=== PATIENT | female | born 2005 | race Hispanic/Latino ===

== ENCOUNTER 2024-09-09 15:21 | Emergency (ER) | payer OTHER ==
[2024-09-09] MEDS ORDERED: ONDANSETRON 4 MG (ODT) TAB ONE (16:03)
[2024-09-09] MEDS ORDERED: ACETAMINOPHEN 500 MG TAB ONE (16:03)
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
[2024-09-09 18:41] VITALS: BP 132/106; TEMP 97.3; O2SAT 100
== END 2024-09-09 18:34 | disposition home or self-care (01) ==
LOC: ER 15:21
DX: R51.9 Headache, unspecified (principal); M54.2 Cervicalgia; R07.9 Chest pain, unspecified; V49.40XA Driver injured in collision with unspecified motor vehicles in traffic accident, initial encounter
CPT/HCPCS: 70450; 72125; 71045; 99283; Q0162

== ENCOUNTER 2024-10-01 12:37 | Emergency (ER) | payer OTHER ==
--- OUTSIDE RECORDS SUMMARY | 2024-10-01 12:41 | XMS REPORT | Continuity of Care Document ---
Author Name Unknown Address [address] [facility] [address] [place] [address] [facility] Address [address] [facility] [place] [address] Care Team Providers Care Hand Icer Name Role Phone Frederic Rossi Attending Clinician Ernestina Vides Attending Clinician UnavailIsabel Jerome Attending Clinician Unavailable Serg Pisano APN Attending Clinician Unavail Ruth Woodward Attending Clinician Unav ailFrederic Faith Admitting Clinician Unavailable Ernestina Forrester Admitting Clinician UnavailSerg Martin APN Admitting Clinician Unavail Ruth Woodward Admitting Clinician Unav ailkarina Payers Payer Name Policy Type Policy Number Effective Date Expirati on Date Source Problems Condition Name Condition Details Condition Category Status Onset Date Resolution Date Last Treatment Date Treating Clinician Comments Source Anxiety Anxiety Problem Active 09-13 00:00: 00 [facility] Depressive disorder Depressive Disorder Problem Active - 00:00: 00 [facility] Menorrhagi a Menorrhagi a Problem Active - 00:00: 00 [facility] Depressed mood Depressed Mood Problem Active 09-13 00:00: 00 [facility] Allergies, Adverse Reactions, Alerts Allergy Name Allergy Type Status Severity Reaction(s) Onset Date Inactive Date Treating Clinician Comments Source No Known Allergie s DA Active U 2020-07 00:00: 00 [facility] No Known Allergie s DA Active U 01-02 00:00: 00 [facility] No Known Allergie s DA Active U 01-12 00:00: 00 [facility] Social History Smoking Status Start Date Stop Date Source Never Smoker [facility] Vital Signs Vital Name Observation Time Observation Value Comments S ource BP Diastolic 2024-09-13 00:00:00 77 mm[Hg] [facility] BP Systolic 2024-09-13 00:00:00 117 mm[Hg] [facility] Body Weight 2024-09-13 00:00:00 164 [lb_av] [facility] BMI (Body Mass Index) 2024-09-13 00[facility]00[facility]00 [facility] 2024-09-13 00:00:00 63 [in_i] [facility] Procedures Procedure Date / Time Performed Performing Clinicia n Source Endoscopic Balloon Dilation of Ostium of Paranasal Sinus [facility] Appendectomy [facility] Encounters Start Date/Time End Date/Time Encounter Type Admission Type Attending Clinicians Care Facility Care Department Encounter ID Source 2024-09-13 00:00:00 2024-09-13 00:00:00 Divya Birmingham, NURSING DEPARTMENT CHAIRPERSON: [address], [address], [place] [address] , Ph. [facility] - [email or web address]* [id number] [facility] 2023-11-08 10:34:00 2023-11-08 10:34:00 [facility]patient [facility] [id number] 2023-02-18 15:37:00 2023-02-18 15:37:00 Outpatient Ernestina [facility] [id number] 2022-12-15 13:57:00 2022-12-15 13:57:00 [facility] [id number] [facility] 2022-05-11 16:41:00 2022-05-11 17:14:00 Emergency EM Isabel [facility] [id number] [facility] 2021-05-22 08:29:00 2021-05-22 08:29:00 [facility] [id number] [facility] 2020-10-18 11:14:00 2020-10-18 11:14:00 Outpatient Ruth Swanson [facility] [id number] [facility] Results Test Description Test Time Test Comments Results Result Co mments Source [facility] W/AUTO [id number] 12:56:00* Test Item Value Reference Range Interpretation Comme nts WHITE BLOOD CELL (test code = WBC) 8.0 X10(3) 4.5-11.0 N RED BLOOD CELL (test code = RBC) 4.45 X10(6) 4.2-5.4 N HEMOGLOBIN (test code = HGB) 8.8 g/dL 12.5-16.0 L HEMATOCRIT (test code = HCT) 29.5 % 37.0-47.0 L MEAN CELL VOLUME (test code = MCV) 66.3 fL 78-100 L MEAN CELL HGB (test code = MCH) 19.8 pg 26.0-34.0 L MEAN CELL HGB CONCETRATION (test code = MCHC) 29.8 g/dl 30.0-37.0 L RED CELL DISTRIBUTION WIDTH (test code = RDW) 17.5 % 11.5-14.5 H PLATELET COUNT (test code = PLT) 411 X10(3) 150-400 H MEAN PLATELET VOLUME (test code = MPV) 9.8 fl 8.7-11.4 N NEUTROPHIL % (test code = NT%) 61.0 % 36.0-66.0 N IMMATURE GRANULOCYTE % (test code = IG%) 0.1 % 0.0-2.0 N LYMPHOCYTE % (test code = LY%) 28.7 % 16-50 N MONOCYTE % (test code = MO%) 6.7 % 0.0-13.0 N EOSINOPHIL % (test code = EO%) 3.1 % 0.0-4.5 N BASOPHIL % (test code = BA%) 0.4 % 0.0-1.5 N NEUTROPHIL # (test code = NT#) 4.9 X10(3) 1.7-7.7 N IMMATURE GRANULOCYTE # (test code = IG#) 0.01 X10(3)uL 0.00-0.03 N LYMPHOCYTE # (test code = LY#) 2.3 X10(3) 1.0-4.8 N MONOCYTE # (test code = MO#) 0.5 X10(3) 0.0-0.89 N EOSINOPHIL # (test code = EO#) 0.3 X10(3) 0.0-0.6 N BASOPHIL # (test code = BA#) 0.0 X10(3) 0.0-0.2 N RBC MORPHOLOGY REQUIRED (test code = RBCM) MORPHOLOGY NEEDED NORMAL RBC [id number] 12:56:00* Test Item Value Reference Range Interpretation Comme nts MICROCYTOSIS (test code = MICR) 1+ NOT PRESENT PLATELET ESTIMATE (test code = PLTEST) SLIGHTLY INCREASED ADEQUATE PLATELET MORPHOLOGY (test code = PLTMORPH) VARIABLE PLT SIZE NORMAL A PROTHROMBIN [id number] 12:54:00* Test Item Value Reference Range Interpretation Comments PROTHROMBIN TIME PATIENT (test code = PTP) 12.4 SECONDS 9.4-13.0 N THERAPEUTIC LEVE L: 1.5 TO 1.9 TIMES NORMAL RANGE INTERNATIONAL NORMAL RATIO (test code = INR) 1.1 Recommended Ther apeutic PT Ratios For Oral AnticoagulantTherapy. CONDITION INT'L NORMALIZED PT RATIO Prophylaxis of venous thrombosis 2.0 - 3.0in high risk medical or surgicalpatients, treatment of venousthrombosis, prevention of embolism. Prevention of recurrent embolism, 2.5 - 3.5or treatment of patients with mechanicalprosthetic heart valves. VITAMIN D TOTAL [id number] 19:30:00* Test Item Value Reference Range Interpretation Comme nts VITAMIN D TOTAL 25OH (test c ode = VITD) 9.8 ng/ml 30-100 L DRUGS OF ABUSE [id number] 19:21:00* Test Item Value Reference Range Interpretation Comme nts UR COCAINE (test code = COCAU) NEGATIVE ng/ml NEGATIVE UR CANNABINOIDS (test code = CANU) NEGATIVE ng/ml NEGATIVE UR AMPHETAMINE (test code = AMPHU) NEGATIVE ng/dl NEGATIVE UR BARBITURATE (test code = BARBU) NEGATIVE ng/ml NEGATIVE UR BENZODIAZEPINE (test code = BENZU) NEGATIVE ng/ml NEGATIVE UR OPIATES QUAL (test code = OPIAQLU) NEGATIVE ng/ml NEGATIVE UR PHENCYCLIDINE (PCP) (test code = PHENCU) NEGATIVE ng/ml NEGATIVE THE URINE SPECIM EN WAS TESTED AT THE LISTED CUTOFFS DRUG CLASS INITIAL TEST LEVEL AMPHETAMINES 1000 NG/MLBARBITURATES 200 NG/MLBENZODIAZEPIN ES 200 NG/MLCOCAINE METABOLITE 300 NG/MLMARIJUANA METABOLITE 50 NG/MLOPIATES 300 NG/MLPHENCYCLIDINE 25 NG/ML URINALYSIS W REFLEX [id number] 19:07:00* Test Item Value Reference Range Interpretation Comme nts UA COLOR (test code = COLU) YELLOW YELLOW UA APPEARANCE (test code = APPU) CLEAR CLEAR UA GLUCOSE DIPSTICK (test co de = DGLUU) NORMAL mg/dl NORMAL UA BILIRUBIN DIPSTICK (test code = BILU) NEGATIVE mg/dl NEGATIVE UA KETONE DIPSTICK (test cod e = KETU) NEGATIVE mg/dl NEGATIVE UA SPECIFIC GRAVITY (test co de = SGU) 1.025 1.001-1.035 N UA BLOOD DIPSTICK (test code = TAURUS) NEGATIVE /UL NEGATIVE UA PH DIPSTICK (test code = YURY) 5.0 4.6-8.0 UA PROTEIN DIPSTICK (test co de = PROU) 30 mg/dl NEGATIVE A UA UROBILINIOGEN DIPSTICK (test code = URO) NORMAL mg/dl NORMAL UA NITRITE DIPSTICK (test co de = LEIA) NEGATIVE NEGATIVE UA LEUKOCYTE ESTERASE DIPSTI CK (test code = LEUU) 25 /UL NEGATIVE A UA COMMENT (test code = COMU) RANDOM UA MICROSCOPIC NEEDED? (test code = UAMICRO) Y= DO UA MICRO UR HCG [id number] 19:07:00* Test Item Value Reference Range Interpretation Comme nts UR HCG QUAL (test code = HCGQLU) NEGATIVE NEGATIVE UA [id number] 19:07:00* Test Item Value Reference Range Interpretation Comme nts UA WBC (test code = WBCU) 0-2 #/hpf 0-5 UA RBC (test code = RBCU) 0-2 #/hpf 0-5 UA EPITHELIAL CELLS (test co de = EPIU) 1+ /hpf NEG,FEW A UA BACTERIA (test code = BACU) 1+ /hpf NEGATIVE A CBC W/AUTO [id number] 16:50:00* Test Item Value Reference Range Interpretation Comme nts WHITE BLOOD CELL (test code = WBC) 7.7 X10(3) 4.5-11.0 N RED BLOOD CELL (test code = RBC) 4.89 X10(6) 4.2-5.4 N HEMOGLOBIN (test code = HGB) 10.1 g/dL 12.5-16.0 L HEMATOCRIT (test code = HCT) 33.0 % 37.0-47.0 L MEAN CELL VOLUME (test code = MCV) 67.5 fL 78-100 L MEAN CELL HGB (test code = MCH) 20.7 pg 26.0-34.0 L MEAN CELL HGB CONCETRATION (test code = MCHC) 30.6 g/dl 30.0-37.0 N RED CELL DISTRIBUTION WIDTH (test code = RDW) 18.4 % 11.5-14.5 H PLATELET COUNT (test code = PLT) 398 X10(3) 150-400 N MEAN PLATELET VOLUME (test code = MPV) 10.4 fl 8.7-11.4 N NEUTROPHIL % (test code = NT%) 61.8 % 36.0-66.0 N IMMATURE GRANULOCYTE % (test code = IG%) 0.1 % 0.0-2.0 N LYMPHOCYTE % (test code = LY%) 30.1 % 16-50 N MONOCYTE % (test code = MO%) 6.3 % 0.0-13.0 N EOSINOPHIL % (test code = EO%) 1.4 % 0.0-4.5 N BASOPHIL % (test code = BA%) 0.3 % 0.0-1.5 N NEUTROPHIL # (test code = NT#) 4.8 X10(3) 1.7-7.7 N IMMATURE GRANULOCYTE # (test code = IG#) 0.01 X10(3)uL 0.00-0.03 N LYMPHOCYTE # (test code = LY#) 2.3 X10(3) 1.0-4.8 N MONOCYTE # (test code = MO#) 0.5 X10(3) 0.0-0.89 N EOSINOPHIL # (test code = EO#) 0.1 X10(3) 0.0-0.6 N BASOPHIL # (test code = BA#) 0.0 X10(3) 0.0-0.2 N RBC MORPHOLOGY REQUIRED (test code = RBCM) MORPHOLOGY NEEDED NORMAL RBC [id number] 16:50:00* Test Item Value Reference Range Interpretation Comme nts MICROCYTOSIS (test code = MICR) 2+ NOT PRESENT PLATELET ESTIMATE (test code = PLTEST) ADEQUATE ADEQUATE COMPREHENSIVE METABOLIC [id number] 16:41:00* Test Item Value Reference Range Interpretation Comme nts SODIUM (test code = NA) 137 mmol/L 136-145 N POTASSIUM (test code = K) 4.1 mmol/L 3.5-5.1 N CHLORIDE (test code = CL) 102 mmol/L 98-107 N CARBON DIOXIDE (test code = CO2) 24 mmol/L 21-32 N GLUCOSE (test code = GLU) 98 mg/dL 70-100 N BLOOD UREA NITROGEN (test code = BUN) 11 mg/dL 7-18 N GLOMERULAR FILTRATION RATE (test code = GFR) > 60.00 See_Comment The Glomerular Filtration Rate is a calculated parameterbased on serum Creatinine, patient age and sex. GFR valuesless than 60 mL/min/1.73 square meters are indicative ofChronic Kidney Disease. Values less than 15 mL/min/1.73square meters indicate Kidney failure. The calculation forGFR is based on the CKD-EPI (2020) calculation. This formulais race indifferent and is the recommended formula for GFRby the National Kidney Foundation for Adults.The GFR will not calculate if the sex is unknown or if thepatient's age is <18 years. [Automated message] The system which generated this result transmitted reference range: >=60. The reference range was not used to interpret this result as normal/abnormal. CREATININE (test code = CREAT) 0.65 mg/dl 0.55-1.02 N TOTAL PROTEIN (test code = PROT) 8.6 g/dl 6.4-8.2 H ALBUMIN (test code = ALB) 4.1 g/dl 3.4-5.0 N CALCIUM (test code = CA) 9.1 mg/dL 8.5-10.1 N BILIRUBIN TOTAL (test code = BILT) 0.3 mg/dL 0.2-1.0 N SGOT/AST (test code = AST) 11 U/L 15-37 L SGPT/ALT (test code = ALT) 12 U/L 12-78 N ALKALINE PHOSPHATASE TOTAL (test code = ALKP) 112 U/L 47-176 N LIPID PROFILE (CORONARY RISK)2023-02-18 16:41:00* Test Item Value Reference Range Interpretation Comme [facility] TRIGLYCERIDES (test code = TRIG) 114 mg/dL <150 CHOLESTEROL (test code = CHOL) 158 mg/dL < 200 HDL CHOLESTEROL (test code = HDL) 31 mg/dL 40-59 L NON-HDL CHOLESTEROL (test code = NHDL) 127 mg/dl <130 LIPOPROTEIN LDL ROBSON (test code = LDLC) 104 mg/dl <100 H LDL/HDL (test code = LDL/HDL) 3.4 Ratio LDL/HDL RATIO [facility] 3.22 Average 5.03 Twice average 6.14 Three times average VITAMIN [id number] 16:41:00* Test Item Value Reference Range Interpretation [facility] V[facility] B12 (test code = VITB12) 371 pg/ml 193-986 N Results of th is assay method may be falsely depressed orelevated if patient is taking high doses of Biotin [id number] 16:41:00* Test Item Value Reference Range Interpretation [facility] FOLATE (test code = FOL) 9.8 ng/ml >8.6 Results of th is assay method may be falsely depressed orelevated if patient is taking high doses of Biotin THYROID STIMULATING [id number] 16:41:00* Test Item Value Reference Range Interpretation Comme [facility] THYROID STIMULATING HORMONE (test code = TSH) 1.658 uIU/ml 0.358-3.74 N Results of th is assay method may be falsely depressed orelevated if patient is taking high doses of Biotin DRUGS OF ABUSE [id number] 20:04:00* Test Item Value Reference Range Interpretation Comme nts UR COCAINE (test code = COCAU) NEGATIVE ng/ml NEGATIVE UR CANNABINOIDS (test code = CANU) NEGATIVE ng/ml NEGATIVE UR AMPHETAMINE (test code = AMPHU) NEGATIVE ng/dl NEGATIVE UR BARBITURATE (test code = BARBU) NEGATIVE ng/ml NEGATIVE UR BENZODIAZEPINE (test code = BENZU) NEGATIVE ng/ml NEGATIVE UR OPIATES QUAL (test code = OPIAQLU) NEGATIVE ng/ml NEGATIVE UR PHENCYCLIDINE (PCP) (test code = PHENCU) NEGATIVE ng/ml NEGATIVE THE URINE SPECIM EN WAS TESTED AT THE LISTED CUTOFFS DRUG CLASS INITIAL TEST LEVEL AMPHETAMINES 1000 NG/MLBARBITURATES 200 NG/MLBENZODIAZEPIN ES 200 NG/MLCOCAINE METABOLITE 300 NG/MLMARIJUANA METABOLITE 50 NG/MLOPIATES 300 NG/MLPHENCYCLIDINE 25 NG/ML VITAMIN [id number] 12:40:00* Test Item Value Reference Range Interpretation Comme nts VITAMIN B12 (test code = VITB12) 321 pg/ml 193-986 N Results of th is assay method may be falsely depressed orelevated if patient is taking high doses of Biotin [id number] 12:40:00* Test Item Value Reference Range Interpretation Comme [facility] INSULIN (test code = INS) 22.85 uIU/ML 3-28 N VITAMIN D TOTAL [id number] 12:40:00* Test Item Value Reference Range Interpretation Comme [facility] VITAMIN D TOTAL 25OH (test c ode = VITD) 28.3 ng/ml 30-100 L COMPREHENSIVE METABOLIC [id number] 10:16:00* Test Item Value Reference Range Interpretation Comme nts SODIUM (test code = NA) 138 mmol/L 136-145 N POTASSIUM (test code = K) 3.9 mmol/L 3.5-5.1 N CHLORIDE (test code = CL) 103 mmol/L 98-107 N CARBON DIOXIDE (test code = CO2) 25 mmol/L 21-32 N GLUCOSE (test code = GLU) 90 mg/dL 70-100 N BLOOD UREA NITROGEN (test co de = BUN) 13 mg/dL 7-18 N CREATININE (test code = CREAT) 0.50 mg/dl 0.55-1.02 L TOTAL PROTEIN (test code = PROT) 7.6 g/dl 4.8-7.8 N ALBUMIN (test code = ALB) 3.5 g/dl 3.4-5.0 N CALCIUM (test code = CA) 8.7 mg/dL 8.5-10.1 N BILIRUBIN TOTAL (test code = BILT) 0.3 mg/dL 0.2-1.0 N SGOT/AST (test code = AST) 13 U/L 15-37 L SGPT/ALT (test code = ALT) 20 U/L 12-78 N ALKALINE PHOSPHATASE TOTAL ( test code = ALKP) 98 U/L 47-176 N LIPID PROFILE (CORONARY RISK)2021-05-22 10:16:00* Test Item Value Reference Range Interpretation Comme nts TRIGLYCERIDES (test code = TRIG) 106 mg/dL <150 CHOLESTEROL (test code = CHOL) 172 mg/dL < 200 HDL CHOLESTEROL (test code = HDL) 32 mg/dL 40-59 L NON-HDL CHOLESTEROL (test code = NHDL) 140 mg/dl <130 H LIPOPROTEIN LDL ROBSON (test code = LDLC) 119 mg/dl <100 H LDL/HDL (test code = LDL/HDL) 3.7 Ratio LDL/HDL RATIO [facility] 3.22 Average 5.03 Twice average 6.14 Three times average THYROID STIMULATING [id number] 10:16:00* Test Item Value Reference Range Interpretation Comme nts THYROID STIMULATING HORMONE (test code = TSH) 1.248 uIU/ml 0.516-4.13 N Results of th is assay method may be falsely depressed orelevated if patient is taking high doses of Biotin [id number] 10:06:00* Test Item Value Reference Range Interpretation Comme nts GLYCOSYLATED HEMOGLOBIN (HA1C) (test code = GLYHGB) 5.6 % <5.7 N * DUE TO METHOD REVISION, REFERENCE RANGE HAS BEEN UPDATED * ESTIMATED AVERAGE GLUCOSE (test code = EAG) 114 MG/DL <126 CBC W/AUTO [id number] 09:01:00* Test Item Value Reference Range Interpretation Comme nts WHITE BLOOD CELL (test code = WBC) 8.5 X10(3) 4.5-11.0 N RED BLOOD CELL (test code = RBC) 4.46 X10(6) 3.9-5.3 N HEMOGLOBIN (test code = HGB) 10.5 g/dL 12.0-16.0 L HEMATOCRIT (test code = HCT) 33.5 % 36.0-46.0 L MEAN CELL VOLUME (test code = MCV) 75.1 fL 78-102 L MEAN CELL HGB (test code = MCH) 23.5 pg 25.0-35.0 L MEAN CELL HGB CONCETRATION (test code = MCHC) 31.3 g/dl 30.0-37.0 N RED CELL DISTRIBUTION WIDTH (test code = RDW) 15.7 % 11.5-14.5 H PLATELET COUNT (test code = PLT) 391 X10(3) 150-350 H MEAN PLATELET VOLUME (test c ode = MPV) 9.9 fl 8.7-11.4 N NEUTROPHIL % (test code = NT%) 66.8 % 36.0-66.0 H IMMATURE GRANULOCYTE % (test code = IG%) 0.2 % 0.0-2.0 N LYMPHOCYTE % (test code = LY%) 23.6 % 16-50 N MONOCYTE % (test code = MO%) 6.0 % 0.0-13.0 N EOSINOPHIL % (test code = EO%) 3.2 % 0.0-4.5 N BASOPHIL % (test code = BA%) 0.2 % 0.0-1.5 N NEUTROPHIL # (test code = NT#) 5.7 X10(3) 1.7-7.7 N IMMATURE GRANULOCYTE # (test code = IG#) 0.02 X10(3)uL 0.00-0.03 N LYMPHOCYTE # (test code = LY#) 2.0 X10(3) 1.0-4.8 N MONOCYTE # (test code = MO#) 0.5 X10(3) 0.0-0.89 N EOSINOPHIL # (test code = EO#) 0.3 X10(3) 0.0-0.6 N BASOPHIL # (test code = BA#) 0.0 X10(3) 0.0-0.2 N VITAMIN [id number] 13:52:00* Test Item Value Reference Range Interpretation Comme nts VITAMIN B12 (test code = VITB12) 374 pg/ml 193-986 N Results of th is assay method may be falsely depressed orelevated if patient is taking high doses of Biotin [id number] 13:52:00* Test Item Value Reference Range Interpretation Comme nts FOLATE (test code = FOL) 6.5 ng/ml >8.6 L Results of th is assay method may be falsely depressed orelevated if patient is taking high doses of Biotin VITAMIN D TOTAL [id number] 13:52:00* Test Item Value Reference Range Interpretation Comme [facility] VITAMIN D TOTAL 25OH (test c ode = VITD) 13.9 ng/ml 30-100 L VITAMIN [id number] 13:37:00* Test Item Value Reference Range Interpretation Comme [facility] VITAMIN B12 (test code = VITB12) 374 pg/ml 193-986 N Results of th is assay method may be falsely depressed orelevated if patient is taking high doses of Biotin [id number] 13:37:00* Test Item Value Reference Range Interpretation Comme [facility] FOLATE (test code = FOL) 6.5 ng/ml >8.6 L Results of th is assay method may be falsely depressed orelevated if patient is taking high doses of Biotin VITAMIN D TOTAL [id number] 13:37:00* Test Item Value Reference Range Interpretation Comme [facility] VITAMIN D TOTAL 25OH (test code = VITD) ng/ml 30-100 COMPREHENSIVE METABOLIC [id number] 13:36:00* Test Item Value Reference Range Interpretation Comme nts SODIUM (test code = NA) 140 mmol/L 136-145 N POTASSIUM (test code = K) 4.0 mmol/L 3.5-5.1 N CHLORIDE (test code = CL) 104 mmol/L 98-107 N CARBON DIOXIDE (test code = CO2) 26 mmol/L 21-32 N GLUCOSE (test code = GLU) 100 mg/dL 70-100 N BLOOD UREA NITROGEN (test co de = BUN) 12 mg/dL 7-18 N CREATININE (test code = CREAT) 0.43 mg/dl 0.55-1.02 L TOTAL PROTEIN (test code = PROT) 8.0 g/dl 4.8-7.8 H ALBUMIN (test code = ALB) 3.7 g/dl 3.4-5.0 N CALCIUM (test code = CA) 8.7 mg/dl 8.5-10.1 N BILIRUBIN TOTAL (test code = BILT) 0.2 mg/dL 0.2-1.0 N SGOT/AST (test code = AST) 16 U/L 15-37 N SGPT/ALT (test code = ALT) 25 U/L 12-78 N ALKALINE PHOSPHATASE TOTAL ( test code = ALKP) 118 U/L 47-176 N THYROID STIMULATING [id number] 13:36:00* Test Item Value Reference Range Interpretation Comme nts THYROID STIMULATING HORMONE (test code = TSH) 3.757 uIU/ml 0.516-4.13 N Results of th is assay method may be falsely depressed orelevated if patient is taking high doses of Biotin DRUGS OF ABUSE [id number] 13:28:00* Test Item Value Reference Range Interpretation Comme nts UR COCAINE (test code = COCAU) NEGATIVE ng/ml NEGATIVE UR CANNABINOIDS (test code = CANU) NEGATIVE ng/ml NEGATIVE UR AMPHETAMINE (test code = AMPHU) NEGATIVE ng/dl NEGATIVE UR BARBITURATE (test code = BARBU) NEGATIVE ng/ml NEGATIVE UR BENZODIAZEPINE (test code = BENZU) NEGATIVE ng/ml NEGATIVE UR OPIATES QUAL (test code = OPIAQLU) NEGATIVE ng/ml NEGATIVE UR PHENCYCLIDINE (PCP) (test code = PHENCU) NEGATIVE ng/ml NEGATIVE THE URINE SPECIM EN WAS TESTED AT THE LISTED CUTOFFS DRUG CLASS INITIAL TEST LEVEL AMPHETAMINES 1000 NG/MLBARBITURATES 200 NG/MLBENZODIAZEPIN ES 200 NG/MLCOCAINE METABOLITE 300 NG/MLMARIJUANA METABOLITE 50 NG/MLOPIATES 300 NG/MLPHENCYCLIDINE 25 NG/ML DRUGS OF ABUSE [id number] 13:27:00* Test Item Value Reference Range Interpretation Comme nts UR COCAINE (test code = COCAU) NEGATIVE ng/ml NEGATIVE UR CANNABINOIDS (test code = CANU) NEGATIVE ng/ml NEGATIVE UR AMPHETAMINE (test code = AMPHU) ng/dl NEGATIVE UR BARBITURATE (test code = BARBU) NEGATIVE ng/ml NEGATIVE UR BENZODIAZEPINE (test code = BENZU) NEGATIVE ng/ml NEGATIVE UR OPIATES QUAL (test code = OPIAQLU) NEGATIVE ng/ml NEGATIVE UR PHENCYCLIDINE (PCP) (test code = PHENCU) NEGATIVE ng/ml NEGATIVE THE URINE SPECIM EN WAS TESTED AT THE LISTED CUTOFFS DRUG CLASS INITIAL TEST LEVEL AMPHETAMINES 1000 NG/MLBARBITURATES 200 NG/MLBENZODIAZEPIN ES 200 NG/MLCOCAINE METABOLITE 300 NG/MLMARIJUANA METABOLITE 50 NG/MLOPIATES 300 NG/MLPHENCYCLIDINE 25 NG/ML UR HCG [id number] 13:26:00* Test Item Value Reference Range Interpretation Comme nts UR HCG QUAL (test code = HCGQLU) NEGATIVE NEGATIVE CBC W/AUTO [id number] 11:46:00* Test Item Value Reference Range Interpretation Comme nts WHITE BLOOD CELL (test code = WBC) 8.8 X10(3) 4.5-11.0 N RED BLOOD CELL (test code = RBC) 4.53 X10(6) 3.9-5.3 N HEMOGLOBIN (test code = HGB) 11.0 g/dL 12.0-16.0 L HEMATOCRIT (test code = HCT) 34.6 % 36.0-46.0 L MEAN CELL VOLUME (test code = MCV) 76.4 fL 78-102 L MEAN CELL HGB (test code = MCH) 24.3 pg 25.0-35.0 L MEAN CELL HGB CONCETRATION (test code = MCHC) 31.8 g/dl 30.0-37.0 N RED CELL DISTRIBUTION WIDTH (test code = RDW) 14.6 % 11.5-14.5 H PLATELET COUNT (test code = PLT) 412 X10(3) 150-350 H MEAN PLATELET VOLUME (test c ode = MPV) 10.3 fl 8.7-11.4 N NEUTROPHIL % (test code = NT%) 64.7 % 36.0-66.0 N IMMATURE GRANULOCYTE % (test code = IG%) 0.1 % 0.0-2.0 N LYMPHOCYTE % (test code = LY%) 26.9 % 16-50 N MONOCYTE % (test code = MO%) 6.2 % 0.0-13.0 N EOSINOPHIL % (test code = EO%) 1.8 % 0.0-4.5 N BASOPHIL % (test code = BA%) 0.3 % 0.0-1.5 N NEUTROPHIL # (test code = NT#) 5.7 X10(3) 1.7-7.7 N IMMATURE GRANULOCYTE # (test code = IG#) 0.01 X10(3)uL 0.00-0.03 N LYMPHOCYTE # (test code = LY#) 2.4 X10(3) 1.0-4.8 N MONOCYTE # (test code = MO#) 0.6 X10(3) 0.0-0.89 N EOSINOPHIL # (test code = EO#) 0.2 X10(3) 0.0-0.6 N BASOPHIL # (test code = BA#) 0.0 X10(3) 0.0-0.2 N URINALYSIS W REFLEX [id number] 14:33:00* Test Item Value Reference Range Interpretation Comme nts UA COLOR (test code = COLU) Straw YELLOW UA APPEARANCE (test code = APPU) CLEAR CLEAR UA GLUCOSE DIPSTICK (test co de = DGLUU) NORMAL mg/dl NORMAL UA BILIRUBIN DIPSTICK (test code = BILU) NEGATIVE mg/dl NEGATIVE UA KETONE DIPSTICK (test cod e = KETU) NEGATIVE mg/dl NEGATIVE UA SPECIFIC GRAVITY (test co de = SGU) 1.012 1.001-1.035 N UA BLOOD DIPSTICK (test code = TAURUS) SMALL /UL NEGATIVE A UA PH DIPSTICK (test code = YURY) 6.0 4.6-8.0 UA PROTEIN DIPSTICK (test co de = PROU) NEGATIVE mg/dl NEGATIVE UA UROBILINIOGEN DIPSTICK (test code = URO) NORMAL mg/dl NORMAL UA NITRITE DIPSTICK (test co de = LEIA) NEGATIVE NEGATIVE UA LEUKOCYTE ESTERASE DIPSTI CK (test code = LEUU) NEGATIVE /UL NEGATIVE UA COMMENT (test code = COMU) CATHERIZED UA WBC (test code = WBCU) 0-2 #/hpf 0-5 UA EPITHELIAL CELLS (test co de = EPIU) FEW /hpf NEG,FEW UR HCG [id number] 14:33:00* Test Item Value Reference Range Interpretation Comme nts UR HCG QUAL (test code = HCGQLU) NEGATIVE NEGATIVE URINALYSIS W REFLEX [id number] 14:30:00* Test Item Value Reference Range Interpretation Comme nts UA COLOR (test code = COLU) Straw YELLOW UA APPEARANCE (test code = APPU) CLEAR CLEAR UA GLUCOSE DIPSTICK (test co de = DGLUU) NORMAL mg/dl NORMAL UA BILIRUBIN DIPSTICK (test code = BILU) NEGATIVE mg/dl NEGATIVE UA KETONE DIPSTICK (test cod e = KETU) NEGATIVE mg/dl NEGATIVE UA SPECIFIC GRAVITY (test co de = SGU) 1.012 1.001-1.035 N UA BLOOD DIPSTICK (test code = TAURUS) SMALL /UL NEGATIVE A UA PH DIPSTICK (test code = YURY) 6.0 4.6-8.0 UA PROTEIN DIPSTICK (test co de = PROU) NEGATIVE mg/dl NEGATIVE UA UROBILINIOGEN DIPSTICK (test code = URO) NORMAL mg/dl NORMAL UA NITRITE DIPSTICK (test co de = LEIA) NEGATIVE NEGATIVE UA LEUKOCYTE ESTERASE DIPSTI CK (test code = LEUU) NEGATIVE /UL NEGATIVE UA COMMENT (test code = COMU) CATHERIZED UA WBC (test code = WBCU) 0-2 #/hpf 0-5 UA EPITHELIAL CELLS (test co de = EPIU) FEW /hpf NEG,FEW UR HCG [id number] 14:30:00* Test Item Value Reference Range Interpretation Comme nts UR HCG QUAL (test code = HCGQLU) NEGATIVE URINALYSIS W REFLEX [id number] 14:19:00* Test Item Value Reference Range Interpretation Comme nts UA COLOR (test code = COLU) Yellow YELLOW UA APPEARANCE (test code =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
[2024-10-01] MEDS ORDERED: ONDANSETRON 4 MG/2 ML VIAL ONE (13:01)
[2024-10-01] MEDS ORDERED: NA CHLORIDE 0.9% 1,000 ML ONE (13:02)
[2024-10-01 13:35] LABS: Specific Gravity > 1.030 (1.005-1.030)
[2024-10-01 13:36] LABS: Specific Gravity > 1.030 (1.005-1.030); Sqamous Epithelial <5 /HPF (None Seen); Urine Bacteria None Seen /HPF (<20); Urine Bilirubin NEGATIVE (Negative); Urine Blood 1+ (Negative); Urine Clarity Turbid (Clear); Urine Color Yellow (Yellow); Urine Culture Reflex Order NOT NEEDED; Urine Glucose NEGATIVE (Negative); Urine Ketones NEGATIVE (Negative); Urine Microscopic Reflex YN ORDER UMIC; Urine Mucus 1+ /HPF (None Seen); Urine Nitrite NEGATIVE (Negative); Urine Protein NEGATIVE (Negative); Urine RBC <5 /HPF (None Seen); Urine Urobilinogen Normal (Normal); Urine WBC <5 /HPF (<5); Urine pH 5.5 (5.0-7.0)
[2024-10-01 13:38] LABS: Absolute Eosinophils 0.2 K/uL (0-0.5); Absolute Lymphocytes (CBC) 0.7 K/uL (0.7-4.9); Absolute Monocytes 0.5 K/uL (0.1-1.3); Basophils % 0.2 % (0-1.3); Eosinophils % 1.6 % (0-4.4); Hematocrit 38.5 % (36.0-45.0); Hemoglobin 13.1 g/dL (12.0-15.0); Lymphocytes % 5.8 % (15.3-44.8); MCH 27.7 pg (27.0-35.0); MCHC 33.9 g/dL (32.0-36.0); MCV 81.6 fL (80-100); MPV 8.8 fL (7.6-11.3); Monocytes % 4.6 % (3.3-12.3); Neutrophils % 87.8 % (41.7-73.7); Platelets 254 thou/uL (152-406); RBC Red Blood Cell Count 4.72 M/uL (3.86-4.86)
[2024-10-01 13:50] LABS: ALT/SGPT 17 U/L (13-56); Albumin 3.8 g/dL (3.4-5.0); Albumin/Globulin Ratio 0.9 (1.1-1.8); Alkaline Phosphatase 106 U/L (45-117); Anion Gap 8.7 mEq/L (5.0-15.0); BUN Blood Urea Nitrogen 12 mg/dL (7-18); Bicarbonate 24 mEq/L (21-32); Bilirubin Total 0.4 mg/dL (0.2-1.0); Globulin 4.2 g/dL (2.3-3.5); Glomerular Filtration Rate 135 ml/min (=/>90); Glucose Level 97 mg/dL (74-106); Lipase 16 U/L (13-75); Potassium 3.7 mEq/L (3.5-5.1); Sodium Level 135 mEq/L (136-145)
[2024-10-01 13:51] LABS: AST/SGOT < 10 U/L (15-37)
--- NOTE | 2024-10-01 14:49 | RAD REPORT ---
EXAMINATION: Abdomen Pelvis W Contrast CLINICAL INDICATION: Female, 19 years old.Abd pain;Nausea / vomiting TECHNIQUE: CT abdomen and pelvis was performed, after the administration of IV contrast, as per [facility] protocol. Axial, sagittal and coronal reconstructions were obtained. One or more of the following dose reduction techniques were used: Automated exposure control, adjustment of the mA and/o r kV according to patient size, and/or iterative reconstruction. Unless otherwise specified, incidental findings do not require dedicated imaging follow-up. [id number]. COMPARISON: No prior exam. FINDINGS: LOWER CHEST: No acute process identified.No significant pericardial effusion. UPPER GI: No significant abnormality. LIVER: No significant focal abnormality. GALLBLADDER/BILE DUCTS: No biliary ductal dilatation.? PANCREAS: No mass, ductal dilation, or xiomy-pancreatic fluid. SPLEEN: Unremarkable. ADRENALS: No adrenal masses. KIDNEYS AND URETERS: No hydronephrosis.No suspicious renal mass.No renal calculi. ABDOMINAL AORTA AND OTHER VESSELS: Normal caliber aorta and IVC. PERITONEUM: No abnormal free fluid. No free air. LYMPH NODES: No pathologic lymphadenopathy. ABDOMINAL WALL: Unremarkable SMALL BOWEL/COLON: Small bowel has normal course and caliber. No colonic wall thickening or pericolon ic inflammatory changes.Appendix absent. URINARY BLADDER: Underdistended but grossly unremarkable. REPRODUCTIVE ORGANS: No pathologic process. MUSCULOSKELETAL: No acute or suspicious osseous abnormality. ADDITIONAL FINDINGS: None. IMPRESSION: No acute findings within the abdomen or pelvis. No bowel obstruction.
--- NOTE | 2024-10-01 15:34 | ER ---
Nurse's Notes [facility] Name: Emilia Aguero Age: 19 yrs Sex: Female : 2005 Arrival Date: 10/01/2024 Time: 12:37 Bed 8 Private MD: Diagnosis: Abdominal pain, unspecified;Nausea with vomiting, unspecified Presentation: 10/01 12:46 Chief complaint: Patient states: N/V STARTED THIS AM WITH ABD CRAMPING. REPORTS EATING db CRAWFISH LAST NIGHT. DIARRHEA STARTED THIS AM. 12:46 Method Of Arrival: Ambulatory db 12:49 Coronavirus screen: Client denies travel out of the [place] in the last 14 days. At this db time, the client does not indicate any symptoms associated with coronavirus-19. Ebola Screen: Patient negative for fever greater than or equal to 101.5 degrees Fahrenheit, and additional compatible Ebola Virus Disease symptoms Patient denies exposure to infectious person. Patient denies travel to an Ebola-affected area in the 21 days before illness onset. No symptoms or risks identified at this time. Initial Sepsis Screen: Does the patient meet any 2 criteria? HR > 90 bpm. No. Patient's initial sepsis screen is negative. Does the patient have a suspected source of infection? No. Patient's initial sepsis screen is negative. Risk Assessment: Do you want to hurt yourself or someone else?. Onset of symptoms was October 01, 2024. 12:49 Acuity: KELLIE 3 db Triage Assessment: 12:49 General: Appears in no apparent distress. Behavior is calm, cooperative. Pain: db Complains of pain in abdomen. Neuro: Level of Consciousness is awake, alert, obeys commands, Oriented to person, place, time, situation. Respiratory: Airway is patent Respiratory effort is even, unlabored, Respiratory pattern is regular, symmetrical. GI: Reports lower abdominal pain, cramping, diarrhea, nausea, vomiting. PLATE FINISHER: 15:47 Not cm10 Historical: - Allergies: 12:49 No Known Allergies; db - PMHx: 12:49 Anemia; db - Immunization history:: Adult Immunizations unknown. - Infectious Disease History:: Denies. - Social history:: Smoking status: Patient denies any tobacco usage or history of. - Family history:: not pertinent. - Hospitalizations: : No recent hospitalization is reported. Screenin:20 [facility] ED Fall Risk Assessment (Adult) History of falling in the last 3 months, cm10 including since admission No falls in past 3 months (0 pts) Confusion or Disorientation No (0 pts) Intoxicated or Sedated No (0 pts) Impaired Gait No (0 pts) Mobility Assist Device Used No (0 pt) Altered Elimination No (0 pt) Score/Fall Risk Level 0 - 2 = Low Risk Oriented to surroundings, Maintained a safe environment, Hourly rounding (assess needs \T\ fall precautionary measures) done. Abuse screen: Denies threats or abuse. Denies injuries from another. Nutritional screening: No deficits noted. Tuberculosis screening: No symptoms or risk factors identified. Assessment: 13:20 General: Appears in no apparent distress. uncomfortable, Behavior is calm, cooperative. cm10 Pain: Complains of pain in abdomen. Neuro: No deficits noted. Level of Consciousness is awake, alert, obeys commands, Oriented to person, place, time, situation, Appropriate for age. Respiratory: No deficits noted. Airway is patent Respiratory effort is even, unlabored, Respiratory pattern is regular, symmetrical. GI: Reports diarrhea, nausea, vomiting. Derm: No deficits noted. Skin is intact, Skin is pink, warm \T\ dry. Musculoskeletal: Range of motion: intact in all extremities. 14:45 Reassessment: Patient appears in no apparent distress at this time. Patient and/or cm10 family updated on plan of care and expected duration. Pain level reassessed. Patient is alert, oriented x 3, equal unlabored respirations, skin warm/dry/pink. 15:45 Reassessment: Patient appears in no apparent distress at this time. Patient and/or cm10 family updated on plan of care and expected duration. Pain level reassessed. Patient is alert, oriented x 3, equal unlabored respirations, skin warm/dry/pink. Patient states feeling better. Patient states symptoms have improved. Vital Signs: 12:49 BP 132 / 83; Pulse 103; Resp 16; Temp 99; Pulse Ox 98% ; Weight 72.57 kg; Height 5 ft. db 3 in. ; Pain 8/10; 13:30 BP 118 / 72; Pulse 87; Resp 15; Pulse Ox 99% ; cm10 13:30 BP 120 / 79; Pulse 89; Resp 15; Pulse Ox 100% ; cm10 15:06 BP 124 / 84; Pulse 85; Resp 15; Pulse Ox 100% ; cm10 12:49 Body Mass Index 28.34 (72.57 kg, 160.02 cm) db 12:49 Pain Scale: Adult db ED Course: 12:41 Patient arrived in ED. al6 12:43 Alfa Bowden MD is Attending Physician. rn 12:49 Triage completed. db 12:49 Arm band placed on right wrist. db 13:20 Patient has correct armband on for positive identification. Placed in gown. Bed in low cm10 position. Call light in reach. Side rails up X2. Pulse ox on. NIBP on. 13:25 CBC with Diff Sent. cm10 13:25 CMP Sent. cm10 13:25 Lipase Sent. cm10 13:25 Test, Urine Sent. cm10 13:25 Urinalysis w/ reflexes Sent. cm10 13:25 Initial lab(s) drawn, by dc, sent to lab. Urine collected: clean catch specimen, cm10 cloudy. Inserted saline lock: 20 gauge in right forearm, using aseptic technique. Blood collected. Flushed with 10 mL NS. 13:42 Joan Goode, RN is Primary Nurse. cm10 14:39 CT Abd/Pelvis - IV Contrast Only In Process Unspecified. EDMS 15:46 Provided Education on: FOLLOW-UP INSTRUCTIONS. cm10 15:46 No provider procedures requiring assistance completed. IV discontinued, intact, cm10 bleeding controlled, No redness/swelling at site. Pressure dressing applied. Administered Medications: 13:24 Drug: NS 0.9% IV 1000 ml IV at 1000 ml once; to be given as a bolus over 60 minutes cm10 Route: IV; Rate: 1000 ml; Site: right forearm; 14:15 Follow up: Response: No adverse reaction; IV Status: Completed infusion; IV Intake: cm10 1000ml 13:25 Drug: Ondansetron IVP 4 mg IVP once; over 2 minutes Route: IVP; Site: right forearm; cm10 14:15 Follow up: Response: No adverse reaction cm10 Medication: 13:20 VIS not applicable for this client. cm10 Intake: 14:15 IV: 1000ml; Total: 1000ml. cm10 Outcome: 15:33 Discharge ordered by . rn 15:46 Discharged to home ambulatory, with family, cm10 15:46 Condition: good 15:46 Discharge instructions given to patient, Instructed on discharge instructions, follow up and referral plans. medication usage, Demonstrated understanding of instructions, follow-up care, medications, Prescriptions given X 2, 15:47 Patient left the ED. cm10 Signatures: Dispatcher [employer] EDAlfa Bahena MD MD rn Benton, Danielle, RN RN db Martinez, Clarissa, RN RN cm10 [email or web address]
--- NOTE | 2024-10-01 15:34 | EDPHYS ---
Physician Documentation [facility] Name: Emilia Aguero Age: 19 yrs Sex: Female : 2005 Arrival Date: 10/01/2024 Time: 12:37 Bed 8 Private MD: ED Physician Alfa Bowden HPI: 10/01 13:22 This 19 yrs old Female presents to ER via Ambulatory with complaints of rn Abdominal Pain, Nausea/Vomiting/Diarrhea. 13:22 The patient presents to the emergency department with nausea, vomiting, diarrhea. rn 13:29 Onset: The symptoms/episode began/occurred this morning. Possible causes: unknown. The rn symptoms are aggravated by nothing. The symptoms are alleviated by nothing. Severity of symptoms: At their worst the symptoms were moderate in the emergency department the symptoms are unchanged. The patient has not experienced similar symptoms in the past. Patient reports ate crawfish last night, woke up this morning with nausea/vomiting/diarrhea and abdominal cramping. No blood in emesis or stool. No fever or chills. Patient reports she is not just had her menstrual cycle this past week. 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 - Infectious Disease History:: Denies. - Social history:: Smoking status: Patient denies any tobacco usage or history of. - Family history:: not pertinent. - Hospitalizations: : No recent hospitalization is reported. ROS: 13:29 Constitutional: Negative for fever, chills, and weight loss, Cardiovascular: Negative rn for chest pain, palpitations, and edema, Respiratory: Negative for shortness of breath, cough, wheezing, and pleuritic chest pain, Abdomen/GI: Positive for abdominal pain with nausea/vomiting/diarrhea Back: Negative for injury and pain, MS/Extremity: Negative for injury and deformity, Skin: Negative for injury, rash, and discoloration, Neuro: Negative for headache, weakness, numbness, tingling, and seizure, Exam: 13:29 Constitutional: This is a well developed, well nourished patient who is awake, alert, rn and in no acute distress. ENT: Dry mucous membranes Cardiovascular: Tachycardic, regular. No pulse deficits. Abdomen/GI: Soft, mild mid abdominal and epigastric tenderness. No rebound or guarding. Vital Signs: 12:49 BP 132 / 83; Pulse 103; Resp 16; Temp 99; Pulse Ox 98% ; Weight 72.57 kg; Height 5 ft. db 3 in. ; Pain 8/10; 13:30 BP 118 / 72; Pulse 87; Resp 15; Pulse Ox 99% ; cm10 13:30 BP 120 / 79; Pulse 89; Resp 15; Pulse Ox 100% ; cm10 15:06 BP 124 / 84; Pulse 85; Resp 15; Pulse Ox 100% ; cm10 12:49 Body Mass Index 28.34 (72.57 kg, 160.02 cm) db 12:49 Pain Scale: Adult db MDM: 12:43 Medical Screening Exam initiated rn 15:29 Differential diagnosis: Nonspecific abd pain, gastritis, pancreatitis, appendicitis, rn diverticulitis, viral gastroenteritis, gastroenteritis. Data reviewed: vital signs, nurses notes, lab test result(s), radiologic studies, CT scan, and as a result, I will discharge patient. Counseling: I had a detailed discussion with the patient and/or guardian regarding the historical points, exam findings, and any diagnostic results supporting the discharge/admit diagnosis, lab results, radiology results, the need for outpatient follow up, to return to the emergency department if symptoms worsen or persist or if there are any questions or concerns that arise at home. Special discussion: Based on the patient's Hx, exam, and Dx evaluation, there is no indication for emergent surgery or inpatient Tx. It is understood by the patient/guardian that if the Sx's persist or worsen they need to return immediately for re-evaluation. I discussed with the patient/guardian in detail that at this point there is no indication for admission to the hospital. It is understood, however, that if the symptoms persist or worsen the patient needs to return immediately for re-evaluation. ED course: No acute findings and workup or CT abdomen pelvis. UPT negative. UA negative. Will discharge home with return precautions and as needed Zofran. I have personally reviewed all of the results, including but not limited to blood tests and imaging deemed necessary to safely discharge this patient at this time. All results given to and printed out for patient. I personally went over all the results with the patient and answered all questions. Patient will follow-up with PCP and or specialist as discussed. Return precautions given and understood.. 10/01 12:53 Order name: CBC with Diff; Complete Time: 14:04 rn 10/01 12:53 Order name: CMP; Complete Time: 14:04 rn 10/01 12:53 Order name: Lipase; Complete Time: 14:04 rn 10/01 12:53 Order name: Test, Urine; Complete Time: 14:04 rn 10/01 12:53 Order name: Urinalysis w/ reflexes; Complete Time: 14:04 rn 10/01 12:53 Order name: CT Abd/Pelvis - IV Contrast Only; Complete Time: 14:58 rn 10/01 12:53 Order name: IV Saline Lock; Complete Time: 13:25 rn 10/01 12:53 Order name: Labs collected and sent; Complete Time: 13:25 rn Administered Medications: 13:24 Drug: NS 0.9% IV 1000 ml IV at 1000 ml once; to be given as a bolus over 60 minutes cm10 Route: IV; Rate: 1000 ml; Site: right forearm; 14:15 Follow up: Response: No adverse reaction; IV Status: Completed infusion; IV Intake: cm10 1000ml 13:25 Drug: Ondansetron IVP 4 mg IVP once; over 2 minutes Route: IVP; Site: right forearm; cm10 14:15 Follow up: Response: No adverse reaction cm10 Disposition Summary: 10/01/24 15:33 Discharge Ordered Notes: Location: Home rn Problem: new rn Symptoms: have improved rn Condition: Stable rn Diagnosis - Abdominal pain, unspecified rn - Nausea with vomiting, unspecified rn Followup: rn - With: Private Physician - When: As needed - Reason: Recheck today's complaints, Re-evaluation by your physician Discharge Instructions: - Discharge Summary Sheet rn - Abdominal Pain, Adult rn - Nausea and Vomiting, Adult rn Forms: - Medication Reconciliation Form rn - Antibiotic actuarial intern - Prescription Opioid Use rn - Patient Portal Instructions rn - Leadership Thank You Letter rn Prescriptions: - ondansetron 4 mg Oral Tablet,disintegrating - take 1 tablet ORAL route every 8 hours As needed; 10 tablet; Refills: 0, rn Product Selection Permitted - Augmentin 875-125 mg Oral Tablet - take 1 tablet ORAL route every 12 hours for 10 days; 20 tablet; Refills: 0, rn Product Selection Permitted Signatures: Dispatcher [employer] EDMS Alfa Bowden MD MD rn Benton, Danielle, RN RN db Joan Goode RN RN cm10 Corrections: (The following items were deleted from the chart) 12:53 12:53 CBC+H.LAB.BRZ ordered. EDMS EDMS 1253 12:53 COMPREHENSIVE METABOLIC PANEL+C.LAB.BRZ ordered. EDMS EDMS 12:53 12:53 LIPASE+C.LAB.BRZ ordered. EDMS EDMS 53 12:53 Test, Urine+UC.LAB.BRZ ordered. EDMS EDMS 12:53 12:53 Urinalysis+U.LAB.BRZ ordered. EDMS EDMS 13:30 13:29 Patient reports ate crawfish last night, woke up this morning with rn nausea/vomiting/diarrhea and abdominal cramping. No blood in emesis or stool. No fever or chills.. rn
[2024-10-01 16:22] VITALS: TEMP 99
[2024-10-01 16:28] VITALS: O2SAT 100
[2024-10-01 16:34] VITALS: BP 124/84
== END 2024-10-01 15:47 | disposition home or self-care (01) ==
LOC: ER 12:37
DX: R10.13 Epigastric pain (principal); R11.2 Nausea with vomiting, unspecified
CPT/HCPCS: 96361; 85025; 81001; 36415; 81025; 83690; 80053; 74177; 96374; 99284; Q9967; J2405; J7030